=== PATIENT | male | born 1985 | race Two or more races ===

== ENCOUNTER 2019-12-04 22:21 | Emergency (ER) | payer SELFPAY ==
[~2019-12-04] VITALS: Ht 172.7 cm; Wt 63.6 kg
[2019-12-04 22:36] VITALS: BP 144/95
[2019-12-04] MEDS ORDERED: CEPHALEXIN 250 MG CAPSULE. PO ONE (23:00)
[2019-12-04] MEDS ORDERED: HYDROcodone/APAP 7.5/325MG 1 TAB TABLET PO ONE (23:00)
[2019-12-04] MEDS ORDERED: HYDR-3165 PO (23:09)
[2019-12-04] MEDS ORDERED: CEPH500T PO (23:09)
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
== END 2019-12-04 23:20 | disposition home or self-care (01) ==
LOC: ER 22:21
DX: T21.26XA Burn of second degree of male genital region, initial encounter (principal); Z79.899 Other long term (current) drug therapy; X12.XXXA Contact with other hot fluids, initial encounter; Y93.89 Activity, other specified; Y92.89 Other specified places as the place of occurrence of the external cause; Y99.8 Other external cause status
CPT/HCPCS: 99283